=== PATIENT | male | born 2000 | race African-American/Black ===

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

== ENCOUNTER 2019-05-04 06:14 | Emergency (ER) | payer BC ==
[~2019-05-04] VITALS: Ht 188 cm; Wt 127.0 kg
[2019-05-04] MEDS ORDERED: AUGMENTIN 875-1 EACH PO (06:45)
[2019-05-04 07:51] VITALS: BP 150/88
== END 2019-05-04 07:52 | disposition home or self-care (01) ==
LOC: ER 06:14
DX: K04.7 Periapical abscess without sinus (principal)

== ENCOUNTER 2020-04-29 22:51 | Emergency (ER) | payer BC, OTHER ==
[~2020-04-29] VITALS: Ht 188 cm; Wt 140.6 kg
[~2020-04-29 22:51] MED LIST changes: +AUGMENTIN 875-1 EACH PO
[2020-04-29 22:54] VITALS: BP 147/73
[2020-04-29] MEDS ORDERED: AMOXICILLIN 50500 M1 PO (23:07)
[2020-04-29] MEDS ORDERED: IBUPROFEN 800800 M1 PO (23:07)
== END 2020-04-29 23:27 | disposition home or self-care (01) ==
LOC: ER 22:51
DX: K02.9 Dental caries, unspecified (principal)

== ENCOUNTER 2020-06-24 10:42 | Emergency (ER) | payer BC, OTHER ==
[~2020-06-24] VITALS: Ht 188 cm; Wt 140.6 kg
[~2020-06-24 10:42] MED LIST changes: +AMOXICILLIN 50500 M1 PO
[2020-06-24] MEDS ORDERED: IBUPROFEN 800800 M1 PO (12:19)
[2020-06-24] MEDS ORDERED: PENICILLIN VK500 M1 PO (12:19)
[2020-06-24 12:30] VITALS: BP 146/79
== END 2020-06-24 12:34 | disposition home or self-care (01) ==
LOC: ER 10:42
DX: R09.81 Nasal congestion (principal); Z20.828 Contact with and (suspected) exposure to other viral communicable diseases; K08.89 Other specified disorders of teeth and supporting structures; R05 Cough

== ENCOUNTER 2020-12-14 21:09 | Emergency (ER) | payer OTHER ==
[~2020-12-14] VITALS: Ht 188 cm; Wt 113.4 kg
[~2020-12-14 21:09] MED LIST changes: +PENICILLIN VK500 M1 PO
[2020-12-14 23:14] VITALS: BP 132/76
== END 2020-12-14 23:08 | disposition home or self-care (01) ==
LOC: ER 21:09
DX: R36.9 Urethral discharge, unspecified (principal); Z79.1 Long term (current) use of non-steroidal anti-inflammatories (NSAID); Z79.899 Other long term (current) drug therapy; F17.200 Nicotine dependence, unspecified, uncomplicated

== ENCOUNTER 2021-07-02 18:38 | Emergency (ER) | payer OTHER ==
[~2021-07-02] VITALS: Ht 188 cm; Wt 129.3 kg
[2021-07-02 18:49] VITALS: BP 131/66
[2021-07-02 19:07] LABS: ABSOLUTE NEUTROPHILS 2.9 thou/uL (1.4-8.2); BASOPHILS 0.9 % (0.0-2.0); EOSINOPHILS 1.9 % (0.0-3.0); HEMATOCRIT 39.6 % (42.0-52.0); HEMOGLOBIN 13.5 gm/dL (14.0-18.0); LYMPHOCYTES 43.8 % (24.0-44.0); MCH 29.8 pg (26.0-34.0); MCV 87.7 fL (80.0-100.0); MONOCYTES 8.1 % (1.0-8.0); PLATELET COUNT 238 thou/uL (150-400); POLYS 45.3 % (36.0-66.0); RBC 4.52 mil/uL (4.50-6.00); RDW 13.6 % (10.5-14.5); WBC 6.5 thou/uL (4.0-11.0)
[2021-07-02 19:29] LABS: CALCIUM 9.8 mg/dL (8.5-10.1); CREATININE 1.1 mg/dL (0.7-1.3); POTASSIUM 4.3 mmol/L (3.5-5.1)
--- NOTE | 2021-07-03 08:06 | EKG ---
[address] [address] ELECTROCARDIOGRAM REPORT Name: JENNIFER MONTENEGRO CHLOÉ Room #: [facility]P [facility]ITAL[facility] [id number] Admission: 07/02/21 Attend Phys: Discharge: 07/02/21 Date of : [birth year] Report #: [id number] [facility] ED Test Date: 2021-07-02 Test Time: 18:52:10 Pat Name: JENNIFER MONTENEGRO Department: Room: Gender: Machinist Wood: steven : 2000 Requested By: Ebenezer Wilkerson Order Number: [id number] MD: Nabor Church Measurements Intervals [place] Rate: 78 P: 40 [place]: 161 QRS: 36 QRSD: 85 T: 33 QT: 330 QTc: 376 Interpretive Statements Sinus rhythm No previous ECG available for comparison Electronically Signed On 07-03-2021 8:06:17 RECORD PRESS TENDER by Nabor Church [email or web address] <ELECTRONICALLY SIGNED> By: Nabor Church MD, [facility] 07/03/21 0806 [id number] 51 Nabor Church MD, FACC /EPI
== END 2021-07-02 19:45 | disposition home or self-care (01) ==
LOC: ER 18:38
PROVIDERS: Emergency Medicine
DX: R07.89 Other chest pain (principal)